=== PATIENT | female | born 1960 | race African-American/Black ===

== ENCOUNTER 2019-01-23 16:08 | Inpatient (IN) | payer BC, MEDICAID ==
[~2019-01-23] VITALS: Ht 154.9 cm; Wt 68.0 kg
[~2019-01-23 16:08] MED LIST: MOTRIN
[2019-01-23 17:06] LABS: BASOPHILS % 0.5 % (0.0-2.0); EOSINOPHILS % 0.6 % (0.0-5.0); HEMATOCRIT. 36.8 % (36.0-48.0); HEMOGLOBIN. 12.3 g/dL (12.0-16.0); LYMPHOCYTES % 36.5 % (20.0-50.0); MEAN CORPUSCULAR HEMOGLOBIN 29.2 pg (28.0-32.0); MEAN CORPUSCULAR VOLUME 87.6 fL (81.0-99.0); MEAN PLATELET VOLUME 7.3 fl (7.4-10.4); MONOCYTES % 6.6 % (2.0-8.0); NEUTROPHILS % 55.8 % (40.0-76.0); PLATELET 271 x1000/uL (130-400)
[2019-01-23 17:12] LABS: CHLORIDE 109 mEq/L (98-107)
[2019-01-23 17:17] LABS: ETHANOL BLOOD < 10 mg/dL
[2019-01-23] MEDS ORDERED: GUAIFENESIN 200MG/10ML SUGAR FREE UDC PO PRN (18:15)
[2019-01-23] MEDS ORDERED: DIPHENHYDRAMINE 50MG/ML VIAL IV PRN (18:15)
[2019-01-23] MEDS ORDERED: IPRATROPIUM/ALBUTEROL 0.5-3(2.5)MG/3ML NEB INH PRN (18:15)
[2019-01-23] MEDS ORDERED: HYDROCODONE/ACETAMINOPHEN 5/325MG TABLET PO PRN (18:15)
[2019-01-23] MEDS ORDERED: MAGNESIUM/ALUMINUM HYDROXIDE/SIMETHICONE 30ML UDC PO PRN (18:15)
[2019-01-23] MEDS ORDERED: ONDANSETRON HCL 4MG/2ML INJ IV PRN (18:15)
[2019-01-23] MEDS ORDERED: DOCUSATE SODIUM 100MG CAPSULE PO PRN (18:15)
[2019-01-23 18:23] LABS: PHOSPHORUS 3.3 mg/dL (2.5-4.9)
[2019-01-23 18:29] LABS: CLARITY URINE CLEAR (CLEAR); COLOR URINE YELLOW (YELLOW); KETONES URINE 1+ (NEGATIVE); LEUKOCYTE ESTERASE URINE 1+ (NEGATIVE); NITRITE URINE NEGATIVE (NEGATIVE); OCCULT BLOOD URINE NEGATIVE (NEGATIVE); PH URINE 5.5 (4.5-8.0); PROTEIN URINE NEGATIVE (NEGATIVE); SPECIFIC GRAVITY URINE 1.011 (1.005-1.030); UROBILINOGEN URINE 0.2 E.U./dL (0.2-1.0)
[2019-01-23 18:54] LABS: *AMPHETAMINES SCREEN URINE NEGATIVE (NEGATIVE); *BARBITURATES SCREEN URINE NEGATIVE (NEGATIVE); *BENZODIAZEPINES SCREEN URINE NEGATIVE (NEGATIVE); *COCAINE SCREEN URINE NEGATIVE (NEGATIVE); CANNABINOID URINE SCREEN PRESUMTIVE POSITIVE (NEGATIVE); METHADONE URINE SCREEN NEGATIVE (NEGATIVE); OPIATES URINE SCREEN NEGATIVE (NEGATIVE); PHENCYCLIDINE URINE SCREEN NEGATIVE (NEGATIVE)
[2019-01-23] MEDS ORDERED: IOHEXOL-350 100 ML BOTTLE ONE (19:53)
[2019-01-23] MEDS: CLONIDINE 0.1MG TABLET PO PRN (20:03)
[2019-01-23 21:40] VITALS: BP 116/74
[2019-01-23] MEDS: ACETAMINOPHEN 325MG TABLET PO PRN (21:55)
[2019-01-23 23:04] LABS: CREATINE KINASE MB FRACTION 1.1 ng/mL (0.5-3.6)
[2019-01-24] VITALS: BP 126/81
[2019-01-24 04:00] VITALS: BP 122/92
[2019-01-24 06:31] LABS: CHLORIDE 111 mEq/L (98-107)
[2019-01-24 06:39] LABS: LDL CHOLESTEROL 106 mg/dL (5-100)
[2019-01-24 06:40] LABS: HDL CHOLESTEROL 62 mg/dL (40-59)
[2019-01-24 06:41] LABS: CREATINE KINASE 175 IU/L (26-192)
[2019-01-24 06:44] LABS: CREATINE KINASE MB FRACTION 1.1 ng/mL (0.5-3.6)
[2019-01-24 06:47] LABS: BASOPHILS % 1.1 % (0.0-2.0); EOSINOPHILS % 1.9 % (0.0-5.0); HEMOGLOBIN. 11.5 g/dL (12.0-16.0); LYMPHOCYTES % 59.4 % (20.0-50.0); MEAN CORPUSCULAR HEMOGLOBIN 29.4 pg (28.0-32.0); MEAN CORPUSCULAR VOLUME 86.7 fL (81.0-99.0); MEAN PLATELET VOLUME 7.7 fl (7.4-10.4); MONOCYTES % 6.8 % (2.0-8.0); NEUTROPHILS % 30.8 % (40.0-76.0); PLATELET 258 x1000/uL (130-400); RED BLOOD CELL COUNT 3.93 mill/uL (4.2-5.4); RED CELL DISTRIBUTION WIDTH 12.8 % (11.6-14.6)
[2019-01-24 10:00] VITALS: BP 160/86
[2019-01-24 10:04] LABS: T4 FREE 0.89 ng/dL (0.76-1.46)
[2019-01-24 10:20] LABS: FOLIC ACID (FOLATE) SERUM 17.7 ng/mL (>5.38)
[2019-01-24] MEDS: CLOPIDOGREL 75MG TABLET PO SCH (10:30)
[2019-01-24] MEDS: ACETAMINOPHEN 325MG TABLET PO PRN (10:35)
[2019-01-24] MEDS: CLONIDINE 0.1MG TABLET PO PRN (11:08)
[2019-01-24] MEDS: ENOXAPARIN 40MG/0.4ML SYR SUBCUT SCH (11:09)
[2019-01-24 12:00] VITALS: BP 136/82
[2019-01-24 16:00] VITALS: BP 117/76
[2019-01-24] MEDS ORDERED: POTASSIUM CHLORIDE 20MEQ TABLET SR PO NR (16:30)
[2019-01-24 20:00] VITALS: BP 138/85
[2019-01-24] MEDS: ATORVASTATIN CALCIUM 10MG TABLET PO SCH (20:22)
[2019-01-25] VITALS (7 sets, daily range): BP systolic 131–162; BP diastolic 70–90
[2019-01-25] MEDS: ENOXAPARIN 40MG/0.4ML SYR SUBCUT SCH (10:06)
[2019-01-25] MEDS: CLOPIDOGREL 75MG TABLET PO SCH (10:06)
[2019-01-25] MEDS ORDERED: CLOP75TA15 PO (20:26)
[2019-01-25] MEDS ORDERED: ATOR10TA PO (20:26)
[2019-01-25] MEDS: ATORVASTATIN CALCIUM 10MG TABLET PO SCH (21:20)
== END 2019-01-25 23:30 | disposition home or self-care (01) | DRG 47 ==
LOC: ER 16:31 → EDBEDREQ 16:42 → 8WST 17:48 → EDBEDREQ 17:52 → ENRESERV 20:07
PROVIDERS: ADMIT Internal Medicine; ATTEND Internal Medicine
DX: G45.9 Transient cerebral ischemic attack, unspecified (principal); E78.00 Pure hypercholesterolemia, unspecified; F12.90 Cannabis use, unspecified, uncomplicated; I10 Essential (primary) hypertension; Z98.51 Tubal ligation status; H93.13 Tinnitus, bilateral; Z90.49 Acquired absence of other specified parts of digestive tract
CPT/HCPCS: 36415; 70496; 70498; 70551; 80061; 80305; 80320; 82550; 82553; 82607; 82746; 82962; 83036; 83735; 84100; 84439; 84443; 84481; 84484; 93005; 93306; 93880; 97161; 97165; 99285; J1650; J2405; Q9967; G0480